=== PATIENT | female | born 1995 | race African-American/Black ===

== ENCOUNTER 2017-04-22 16:56 | Emergency (ER) | payer BC ==
[~2017-04-22 16:56] MED LIST: CLONIDINE; DEPAKOTE; DOXYCYCLINE HY100 M3 PO; FOCALIN10 MG; LORTAB 7.5-3251 EACH PO; VYVANSE20 MG PO; WELLBUTRIN100 MG PO; ZOLOFT50 MG PO
[2017-04-22 22:13] LABS: URINE SOURCE CLEAN CATCH
[2017-04-22 22:18] LABS: URINE APPEARANCE CLOUDY; URINE BILIRUBIN NEG (NEG); URINE BLOOD NEG (NEG); URINE COLOR YELLOW; URINE GLUCOSE NEG (NEG); URINE KETONE NEG (NEG); URINE LEUKOCYTE ESTERASE NEG (NEG); URINE NITRATE NEG (NEG); URINE PROTEIN NEG (NEG); URINE SPECIFIC GRAVITY 1.027 (1.003-1.035); URINE UROBILINOGEN 0.2 MG/DL (NEG)
[2017-04-22 22:27] LABS: CULTURE INDICATED? NO
[2017-04-22 22:56] LABS: BASOPHIL% 0.7 % (0-2.5); DIFF IND NO; EOSINOPHIL# 0.1 X10e3 (0-0.7); EOSINOPHIL% 0.9 % (0.0-7.0); HEMOGLOBIN 12.8 gm/dL (12.0-16.0); LYMPHOCYTE# 2.7 X10e3 (1.0-3.5); LYMPHOCYTE% 37.7 % (17.0-45.0); MEAN CELL VOLUME 79.7 FL (83-96); MEAN CORPUSCULAR HEMOGLOBIN 24.9 PG (28-34); MEAN CORPUSCULAR HGB CONC 31.3 g/dL (30-36); MEAN PLATELET VOLUME 8.7 FL (6.5-11.5); MONOCYTE# 0.6 X10e3 (0-1.0); MONOCYTE% 8.9 % (3.0-12.0); NEUTROPHIL# 3.8 X10e3 (1.5-7.1); NEUTROPHIL% 51.8 % (40-75); PLATELET COUNT 270 X10e3 (140-420); RED BLOOD COUNT 5.14 X10e (3.90-5.30); RED CELL DISTRIBUTION WIDTH 13.8 % (11.0-15.5); WHITE BLOOD COUNT 7.2 X10e3 (4.0-10.5)
[2017-04-22 23:21] LABS: ALBUMIN SERUM 4.3 g/dL (3.5-5.0); BILIRUBIN, DIRECT 0.1 mg/dL (0.0-0.2); BILIRUBIN,INDIRECT 0.2 mg/dL (0.0-0.9); BILIRUBIN,TOTAL 0.3 mg/dL (0.2-2.0); BUN/CREATININE RATIO 23.33; CALCIUM SERUM 9.4 mg/dL (8.4-10.2); CREATININE SERUM 0.6 mg/dL (0.6-1.4); GLOM FILT RATE Estimated 152.1 mL/min (>60); POTASSIUM 3.9 mmol/L (3.5-5.1); PROTEIN TOTAL SERUM 7.9 g/dL (6.0-8.3)
== END 2017-04-22 23:40 | disposition home or self-care (01) ==
LOC: CED 16:56
DX: R10.13 Epigastric pain (principal); F41.9 Anxiety disorder, unspecified; F32.9 Major depressive disorder, single episode, unspecified; Z90.49 Acquired absence of other specified parts of digestive tract; Z98.890 Other specified postprocedural states; Z88.0 Allergy status to penicillin; Z88.8 Allergy status to other drugs, medicaments and biological substances
CPT/HCPCS: 80048; 80076; 81003; 83690; 84703; 85025; 99284

== ENCOUNTER 2017-05-05 17:50 | Emergency (ER) | payer BC ==
--- NOTE | ~2017-05-05 | CT71 ---
[facility] A Service [facility] RADIOLOGY TEXT RESULTS PATIENT: JOANN VELEZ LOCATION: [place] : [birth year] UNIT #: [id number] AGE: [address]: SONG GARCIA APRN SEX: F ORDER DR: [id number] [facility]. [place], [place] [address] [id number] E MR#: [id number] Acc #: [id number] NAME: JOANN VELEZ : 1995 SEX: F STUDY DATE/TIME: 05/05/2017 22:24 UNIT: [facility] ROOM: STUDY DESCRIPTION: CT Head Wo Contrast Attending Physician: Song Garcia Aprn Ordering Physician: Song Garcia Aprn Primary Care Physician: Grayson Xiong M.D. MEDICAL IMAGING REPORT This report is preliminary unless electronic signature is present EXAM CT scan of the head without contrast HISTORY Posterior headaches for 2-3 months. COMPARISON 03/31/[address] exam was performed with one or more of the following radiation dose reduction techniques: automatic exposure control, adjustment of mA and/or kV according to patient size, and iterative reconstruction. FINDINGS Axial noncontrast images were obtained from the skull base to the vertex. Ventricular size and configuration are normal. There is no evidence of acute infarct or hemorrhage. There are no extra-axial fluid collections. No mass lesion or mass effect is seen. There are no skull fractures. IMPRESSION Normal noncontrast head CT. Dictated by... Sukhwinder Alcala M.D. THIS IS AN ELECTRONICALLY VERIFIED REPORT Sukhwinder Alcala M.D. at 05/06/2017 1:43 PM VICKI/chris TD: 05/06/2017 12:45 JOB #: [id number] [facility] A Service [facility] RADIOLOGY TEXT RESULTS PATIENT: JOANN VELEZ LOCATION: [place] : [birth year] UNIT #: [id number] AGE: [address]: SONG GARCIA APRN SEX: F ORDER DR: MEDICAL IMAGING REPORT Page 1 of 1 COPY
--- NOTE | ~2017-05-05 | CR72 ---
[facility] A Service of [facility] RADIOLOGY TEXT RESULTS PATIENT: JOANN VELEZ LOCATION: [facility] : [birth year] UNIT #: [id number] AGE: [address]: SONG GARCIA APRN SEX: F ORDER DR: [id number] [facility] [address] [place], [place] [address] [id number] E MR#: [id number] Acc #: [id number] NAME: JOANN VELEZ : 1995 SEX: F STUDY DATE/TIME: 05/05/2017 20:27 UNIT: [facility] ROOM: STUDY DESCRIPTION: CR Chest Single View Portable Attending Physician: Song Garcia Aprn Ordering Physician: Deven Schmidt M.D. Primary Care Physician: Grayson Xiong M.D. MEDICAL IMAGING REPORT This report is preliminary unless electronic signature is present EXAM Single view chest. INDICATIONS Shortness of air and fever for 2 months. FINDINGS Single portable AP of the chest compared to 10/27/2016. Heart and mediastinal contours are normal. Lungs are clear. No pleural effusion. IMPRESSION Negative chest radiograph. Dictated by... Asif Alvarado M.D. THIS IS AN ELECTRONICALLY VERIFIED REPORT Asif Alvarado M.D. at 05/06/2017 3:07 PM HAIM/randal TD: 05/06/2017 11:55 JOB #: [id number] MEDICAL IMAGING REPORT Page 1 of 1 COPY
[2017-05-05 21:08] LABS: URINE SOURCE CLEAN CATCH
[2017-05-05 21:21] LABS: INFLUENZA A NEG (NEG)
[2017-05-05 21:22] LABS: INFLUENZA B NEG (NEG)
[2017-05-05 21:27] LABS: URINE APPEARANCE CLEAR; URINE BILIRUBIN NEG (NEG); URINE BLOOD NEG (NEG); URINE COLOR YELLOW; URINE GLUCOSE NEG (NEG); URINE KETONE NEG (NEG); URINE LEUKOCYTE ESTERASE NEG (NEG); URINE NITRATE NEG (NEG); URINE PROTEIN NEG (NEG); URINE SPECIFIC GRAVITY 1.004 (1.003-1.035); URINE UROBILINOGEN 0.2 MG/DL (NEG)
[2017-05-05 21:40] LABS: CULTURE INDICATED? NO
== END 2017-05-06 00:11 | disposition home or self-care (01) ==
LOC: CED 17:50
PROVIDERS: Nurse Practitioner Family; Student in an Organized Health Care Education/Training Program
DX: J06.9 Acute upper respiratory infection, unspecified (principal); F90.9 Attention-deficit hyperactivity disorder, unspecified type; F41.9 Anxiety disorder, unspecified; F32.9 Major depressive disorder, single episode, unspecified; Z88.0 Allergy status to penicillin; Z88.8 Allergy status to other drugs, medicaments and biological substances
CPT/HCPCS: 70450; 71010; 81003; 84703; 87651; 87804; 99284